=== PATIENT | female | born 1975 | race Caucasian/White ===

== ENCOUNTER 2016-09-25 21:59 | Emergency (ER) | payer OTHER ==
[~2016-09-25] VITALS: Ht 170.2 cm; Wt 83.5 kg
[~2016-09-25 21:59] MED LIST: TRAM50TA2 PO
[2016-09-25 22:09] VITALS: Ht 170.2 cm; Wt 83.5 kg
--- NOTE | 2016-09-26 04:10 | ERD ---
ER Documentation Chief Complaint Date/Time DATE: 09/26/16 TIME: 04:10 Chief Complaint rwedness of both eyes w/ pain HPI 41-year-old female presents with CC of bilateral eye redness and discharge x 1 day. She says that the discharge is thin and yellow and she woke up with yellow crusting over her lashes. She reports getting permanent eye makeup tattooed over her upper and lower eyelids prior to onset of Sx. Discomfort as been gradual in onset. She denies any vision loss, pain with moving her eyes in different directions, facial swelling around the eyes, and fever. She has not tried any medications for relief. ROS All systems reviewed and are negative except as per history of present illness. Medications Home Meds Active Scripts Polymyxin B Sulfate-TMP* (Polymyxin B-TMP Eye Drops*) 10 Ml Drops, 1 DROP BOTH EYES QID for 7 Days, EA Prov:Kathryn Marx PA-C 09/26/16 Tramadol HCl (Tramadol HCl) 50 Mg Tablet, 50 MG PO Q4 Y for PAIN, #20 TAB Prov:LISBETH BLAS PA-C 01/06/16 Allergies Allergies: Coded Allergies: No Known Allergy (Unverified , 01/06/16) PMhx/Soc History of Surgery: Yes (back surgery) Anesthesia Reaction: No Hx Neurological Disorder: No Hx Respiratory Disorders: No Hx Cardiac Disorders: No Hx Psychiatric Problems: No Hx Miscellaneous Medical Probl: No Hx Alcohol Use: No Hx Substance Use: No Hx Tobacco Use: No Smoking Status: Never smoker Physical Exam Vitals Physical Exam GENERAL: Non-toxic. No apparent signs of distress. HEENT: Atraumatic. Bilateral eyes are PERRL EOM intact. No pain with EOM movement. Bilateral scleral erythema, injection and think mucoid discharge. No eyelid or lower eyelid swelling noted. No periorbital swelling. Ears: Normal tympanic membrane, no erythema or bulging. No ear canal swelling. No ear discharge. Nose: no nasal discharge. Throat: Oropharynx normal. Tongue pink and moist. Bilateral tonsillar edema with mild exudate. Uvula is midline. No pooling of secretions.. No lymphadenopathy. LUNGS: Clear to auscultation. No accessory muscle use. No wheezing, no crackles. No signs or symptoms of respiratory distress. HEART: Regular rate and rhythm. No murmurs, clicks, rubs or gallops. NEURO: Cranial nerves are grossly intact. Normal mental status for age. Good muscle tone. SKIN: No facial swelling. There is no apparent rash, petechiae, erythema or swelling. Good skin turgor. Procedures/MDM Patient reports having permanent makeup tattooed over her lower and upper eyelids yesterday, this is likely the cause of her Sx today. I explained that if the instrumentation used was not disinfected properly then it has high risk of spread bacteria into the eyes. On exam she had bilateral scleral erythema, injection, and mucoid discharge. Findings consistent with bacterial conjunctivitis. Patient has no periorbital edema, no pain with EOM movement, no vision loss, and denies pain but rather irritation and discomfort. I have low suspicion for acute angle closure glaucoma, gonorrhea conjunctivitis, corneal ulcer, corneal abrasion, FB in eye, and cellulitis. I've prescribed Polymyxin B-TMP eye drops and advised her to avoid sharing any makeup or eye products. Avoid rubbing eyes and wearing makeup over the next few days. Patient is stable for discharge and outpatient management, advised to follow-up with PCP in 1-2 days. Departure Diagnosis: Primary Impression: Eye problem Additional Impression: Bacterial conjunctivitis of both eyes Condition: Kathryn Bianchi PA-C Sep 26, 2016 04:10
[2016-09-26] MEDS ORDERED: POLY10DR19 BOTH EYES (04:11)
[2016-09-26 04:18] VITALS: BP 127/75; PULSE 68; RESP 18; TEMP 98
== END 2016-09-26 04:18 | disposition home or self-care (01) ==
LOC: FTE 21:59
DX: H10.9 Unspecified conjunctivitis (principal)
CPT/HCPCS: 99283